=== PATIENT | female | born 1930 | race Caucasian/White ===

== ENCOUNTER 2017-03-23 19:47 | Emergency (ER) | payer MEDICARE, BC ==
--- NOTE | 2017-03-23 19:52 | UC ---
Respiratory Complaint HPI - HPI Summary HPI Summary: 86 YEAR OLD MALE PRESENTS WITH CYANOSIS OF THE LIPS AND FACE. I WILL SEND HER TO THE ER TO RULE OUT CENTRAL CYANOSIS - History of Current Complaint Stated Complaint: TROUBLE BREATHING Time Seen by Provider: 03/23/17 19:51 Hx Obtained From: Patient Onset/Duration: Sudden Onset Severity Initially: Moderate Severity Currently: Moderate Pain Scale Used: 0-10 Numeric - 5 - Allergies/Home Medications Allergies/Adverse Reactions: Allergies Allergy/AdvReac Type Severity Reaction Status Date / Time Azithromycin [From Zithromax] Allergy Unknown Unknown Verified 03/23/17 20:19 Reaction Details Celecoxib [From Celebrex] Allergy Unknown Unknown Verified 03/23/17 20:19 Reaction Details Lorazepam Allergy Unknown Unknown Verified 03/23/17 20:19 Reaction Details Home Medications: Home Medications Atenolol [Tenormin 100 MG] 100 mg PO DAILY 03/23/17 [History Confirmed 03/23/17] Atorvastatin* [Lipitor*] 10 mg PO BEDTIME 03/23/17 [History Confirmed 03/23/17] Calcium Plus Vitamin D 600 Mg 1 tab DAILY 03/23/17 [History Confirmed 03/23/17] Cholecalciferol TAB* [Vitamin D TAB*] 2,000 units PO DAILY 03/23/17 [History Confirmed 03/23/17] Digoxin TAB* [Lanoxin TAB*] 0.125 mg PO DAILY 03/23/17 [History Confirmed ] Furosemide TAB* [Lasix TAB*] 20 mg PO BID 03/23/17 [History Confirmed 03/23/17] Gabapentin CAP(*) [Neurontin 300 CAP(*)] 300 mg PO TID 03/23/17 [History Confirmed 03/23/17] Losartan Potassium 100 mg PO DAILY 03/23/17 [History Confirmed 03/23/17] Multivitamins/Minerals TAB* [Thera M Plus TAB*] 1 tab PO DAILY 03/23/17 [ History Confirmed 03/23/17] Omeprazole CAP* [Prilosec CAP* 20 MG] 20 mg PO BID 03/23/17 [History Confirmed 03/23/17] Ondansetron TAB* [Zofran 4 MG Tab*] 4 mg PO Q8H PRN 03/23/17 [History Confirmed 03/23/17] Rivaroxaban TAB(*) [Xarelto 20 mg] 20 mg PO DAILY 03/23/17 [History Confirmed ] busPIRone TAB* [Buspar TAB *] 15 mg PO TID 03/23/17 [History Confirmed 03/23/17] traMADol TAB* [Ultram*] 100 mg PO QID 03/23/17 [History Confirmed 03/23/17] traZODone TAB* [Desyrel TAB*] 50 mg PO BEDTIME 03/23/17 [History Confirmed 03/23] PMH/Surg Hx/FS Hx/Imm Hx Previously Healthy: Yes Review of Systems Constitutional: Fatigue Skin: Negative Eyes: Negative ENT: Negative Respiratory: Shortness Of Breath Cardiovascular: Negative Gastrointestinal: Negative Genitourinary: Negative Motor: Negative Neurovascular: Negative Musculoskeletal: Negative Neurological: Negative Psychological: Negative All Other Systems Reviewed And Are Negative: Yes Physical Exam Triage Information Reviewed: Yes Appearance: Ill-Appearing Eye Exam: Normal ENT Exam: Normal Dental Exam: Normal Neck exam: Normal Respiratory: Positive: Respiratory distress Cardiovascular Exam: Normal Abdominal Exam: Normal Musculoskeletal Exam: Normal Neurological Exam: Normal Psychological Exam: Normal Skin: Positive: Other - SEVERE PURPLE DISCOLORATION OF LIPS/FACE Respiratory Course/Dx - Differential Dx/Diagnosis Provider Diagnoses: CENTRAL CYANOSIS Discharge - Discharge Plan Condition: Guarded Disposition: AGAINST MEDICAL ADVICE Patient Education Materials: Dyspnea (ED) Referrals: Damian Quick DO [Primary Care Provider] - Additional Instructions: PATIENT TOLD TO GO TO ER FOR SEVERE SOB AND CENTRAL CYANOSIS.
[2017-03-23 20:16] VITALS: BP 140/84
== END 2017-03-23 20:45 | disposition left against medical advice (07) ==
LOC: UCCORT 19:47
DX: R23.0 Cyanosis (principal); R53.83 Other fatigue; R06.02 Shortness of breath; I48.91 Unspecified atrial fibrillation; Z79.01 Long term (current) use of anticoagulants; Z88.1 Allergy status to other antibiotic agents; Z88.8 Allergy status to other drugs, medicaments and biological substances
CPT/HCPCS: 93005; 99202; G0463